=== PATIENT | male | born 1970 | race American Indian/Alaskan Native ===

== ENCOUNTER 2021-08-02 14:23 | Outpatient (CLI) | payer MEDICARE ==
--- NOTE | 2021-08-02 16:01 | Fluoroscopy Report ---
FLUOROSCOPY CYSTOGRAM STATIC INDICATION: R39.14. Feeling of incomplete emptying of the bladder. COMPARISON: None. IMPRESSION: A suprapubic catheter is in place. There is normal filling of the bladder. No bladder wa ll abnormality, extravasation or filling defect is detected. No evidence for vesicoureteral reflux. After approximately 150 cc of water-soluble contrast infused into the bladder, it became apparent eduin t the patient is incontinent. Contrast outlines a dilated proximal urethra. 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 Fluoroscopic images: 10. Fluoroscopy time: 3.1 minutes. Signer Name: Lazaro Biacnhi Jr, MD Signed: 08/02/2021 3:57 PM Workstation Name: [id number]
== END 2021-08-02 14:24 | disposition home or self-care (01) ==
LOC: FLUORO 14:23
PROVIDERS: ATTEND Urology
DX: R39.14 Feeling of incomplete bladder emptying (principal); N35.819 Other urethral stricture, male, unspecified site; G62.9 Polyneuropathy, unspecified; E78.00 Pure hypercholesterolemia, unspecified; I10 Essential (primary) hypertension; F32.9 Major depressive disorder, single episode, unspecified; Z87.440 Personal history of urinary (tract) infections; Z88.0 Allergy status to penicillin; Z88.6 Allergy status to analgesic agent; Z88.2 Allergy status to sulfonamides; Z88.8 Allergy status to other drugs, medicaments and biological substances; Z98.890 Other specified postprocedural states
CPT/HCPCS: 51600; 74430; Q9958